=== PATIENT | male | born 1955 | race Caucasian/White ===

== ENCOUNTER 2021-01-31 07:01 | Outpatient (REF) | payer MEDICARE, SELFPAY ==
[2021-01-31 08:31] LABS: MANUAL DIFF FLAG NO
[2021-01-31 08:51] LABS: Basophils Absolute Auto 0.1 X10*3/uL (0.0-0.2); Basophils Percent Auto 0.9 % (0-2); Eosinophils Absolute Auto 0.5 X10*3/uL (0.0-0.4); Eosinophils Percent Auto 8.7 % (0-4); Hematocrit 41.8 % (42-52); Hemoglobin 13.8 g/dl (14.0-18.0); Imm Gran Abs Auto 0.01 X10*3/uL (0.00-0.03); Imm Gran Pct Auto 0.2 % (0.0-0.4); Lymphocytes Absolute Auto 1.4 X10*3/uL (1.2-4.9); Lymphocytes Percent Auto 23.5 % (20-40); Mean Corpuscular Hemoglobin 29.7 pg (27.0-33.0); Mean Corpuscular Volume 90.1 fL (80-98); Mean Platelet Volume 10.5 fL (9.4-12.4); Monocytes Absolute Auto 0.7 X10*3/uL (0.1-1.2); Monocytes Percent Auto 11.2 % (2-11); Neutrophils Absolute Auto 3.2 X10*3/uL (2.0-8.3); Neutrophils Percent Auto 55.5 % (45-73); Platelet Count 284 X10*3/uL (160-400); Red Blood Count 4.64 X10*6/uL (4.60-5.80); White Blood Count 5.8 X10*3/uL (4.8-10.8)
[2021-01-31 09:12] LABS: Alanine Aminotransferase 11 U/L (0-40); Albumin Level 4.3 g/dL (3.5-5.0); Alkaline Phosphatase 74 U/L (39-117); Anion Gap 12 (12-20); Aspartate Amino Transferase 16 U/L (5-37); Bilirubin Total 0.5 mg/dL (0.0-1.0); Blood Urea Nitrogen 14 mg/dL (9-16); Calcium 9.8 mg/dL (8.4-10.2); Carbon Dioxide 29 mmol/L (22-29); Chloride 107 mmol/L (96-108); Cholesterol 169 mg/dL; Estimated Glomerular Filt Rate > 60; Glucose Random 95 mg/dL (60-115); HDL Cholesterol 60 mg/dL; LDL Cholesterol Calculated 99 mg/dl; Sodium 143 mmol/L (135-145); Triglycerides 54 mg/dL
[2021-01-31 09:31] LABS: Thyroid Stimulating Hormone 1.77 uIU/mL (0.32-4.0)
== END 2021-01-31 07:02 | disposition home or self-care (01) ==
LOC: HO.LAB 07:01
PROVIDERS: PCP Internal Medicine; Visit Provider Internal Medicine
DX: E78.00 Pure hypercholesterolemia, unspecified (principal); Z86.010 Personal history of colon polyps
CPT/HCPCS: 36415; 80053; 80061; 84443; 85025

== ENCOUNTER 2021-06-11 09:49 | Outpatient (REF) | payer MEDICARE, SELFPAY ==
[2021-06-11 10:23] LABS: MANUAL DIFF FLAG NO
[2021-06-11 10:49] LABS: Basophils Percent Auto 0.5 % (0-2); Eosinophils Absolute Auto 0.3 X10*3/uL (0.0-0.4); Eosinophils Percent Auto 4.2 % (0-4); Hematocrit 43.8 % (42-52); Hemoglobin 14.8 g/dl (14.0-18.0); Imm Gran Abs Auto 0.02 X10*3/uL (0.00-0.03); Imm Gran Pct Auto 0.3 % (0.0-0.4); Lymphocytes Absolute Auto 1.4 X10*3/uL (1.2-4.9); Lymphocytes Percent Auto 19.4 % (20-40); Mean Corpuscular HGB Conc 33.8 g/dl (31.0-36.0); Mean Corpuscular Hemoglobin 29.8 pg (27.0-33.0); Mean Corpuscular Volume 88.1 fL (80-98); Mean Platelet Volume 10.2 fL (9.4-12.4); Monocytes Absolute Auto 0.7 X10*3/uL (0.1-1.2); Monocytes Percent Auto 8.8 % (2-11); Neutrophils Absolute Auto 4.9 X10*3/uL (2.0-8.3); Neutrophils Percent Auto 66.8 % (45-73); Platelet Count 258 X10*3/uL (160-400); Red Blood Count 4.97 X10*6/uL (4.60-5.80); Red Cell Distribution Width 13.2 % (11.0-16.0); White Blood Count 7.4 X10*3/uL (4.8-10.8)
[2021-06-11 11:13] LABS: Alanine Aminotransferase 14 U/L (0-40); Albumin Level 4.5 g/dL (3.5-5.0); Alkaline Phosphatase 70 U/L (39-117); Anion Gap 14 (12-20); Aspartate Amino Transferase 14 U/L (5-37); Bilirubin Total 0.7 mg/dL (0.0-1.0); Blood Urea Nitrogen 13 mg/dL (9-16); Calcium 10.1 mg/dL (8.4-10.2); Carbon Dioxide 27 mmol/L (22-29); Chloride 105 mmol/L (96-108); Cholesterol 200 mg/dL; Estimated Glomerular Filt Rate > 60; Glucose Fasting 95 mg/dL (60-99); HDL Cholesterol 68 mg/dL; LDL Cholesterol Calculated 117 mg/dl; Potassium 4.7 mmol/L (3.3-5.1); Sodium 141 mmol/L (135-145); Total Protein 7.4 g/dL (6.5-8.0); Triglycerides 76 mg/dL
== END 2021-06-11 09:50 | disposition home or self-care (01) ==
LOC: HO.10HDL 09:49
PROVIDERS: Visit Provider Internal Medicine
DX: Z13.31 Encounter for screening for depression (principal); Q61.5 Medullary cystic kidney; E78.00 Pure hypercholesterolemia, unspecified; Z83.49 Family history of other endocrine, nutritional and metabolic diseases
CPT/HCPCS: 36415; 80053; 80061; 85025

== ENCOUNTER 2022-01-28 08:00 | Outpatient (REF) | payer MEDICARE, SELFPAY ==
[2022-01-28 10:41] LABS: Alanine Aminotransferase 15 U/L (0-40); Alkaline Phosphatase 69 U/L (39-117); Anion Gap 12 (12-20); Aspartate Amino Transferase 15 U/L (5-37); Bilirubin Total 0.5 mg/dL (0.0-1.0); Blood Urea Nitrogen 15 mg/dL (9-16); Calcium 9.8 mg/dL (8.4-10.2); Carbon Dioxide 26 mmol/L (22-29); Chloride 107 mmol/L (96-108); Cholesterol 235 mg/dL; Estimated Glomerular Filt Rate > 60; Glucose Random 100 mg/dL (60-115); HDL Cholesterol 61 mg/dL; LDL Cholesterol Calculated 159 mg/dl; Potassium 4.5 mmol/L (3.3-5.1); Sodium 140 mmol/L (135-145); Total Protein 7.1 g/dL (6.5-8.0); Triglycerides 76 mg/dL
== END 2022-01-28 08:01 | disposition home or self-care (01) ==
LOC: HO.10HDL 08:00
PROVIDERS: Visit Provider Internal Medicine
DX: E78.00 Pure hypercholesterolemia, unspecified (principal); Q61.5 Medullary cystic kidney; Z82.49 Family history of ischemic heart disease and other diseases of the circulatory system
CPT/HCPCS: 36415; 80053; 80061

== ENCOUNTER 2022-04-29 07:34 | Outpatient (REF) | payer MEDICARE, SELFPAY ==
[2022-04-29 10:48] LABS: MANUAL DIFF FLAG NO
[2022-04-29 10:53] LABS: Basophils Percent Auto 0.6 % (0-2); Eosinophils Absolute Auto 0.3 X10*3/uL (0.0-0.4); Eosinophils Percent Auto 4.5 % (0-4); Hematocrit 43.8 % (42.0-52.0); Hemoglobin 14.5 g/dl (14.0-18.0); Imm Gran Abs Auto 0.02 X10*3/uL (0.00-0.03); Imm Gran Pct Auto 0.3 % (0.0-0.4); Lymphocytes Absolute Auto 1.4 X10*3/uL (1.2-4.9); Lymphocytes Percent Auto 21.9 % (20-40); Mean Corpuscular HGB Conc 33.1 g/dl (31.0-36.0); Mean Corpuscular Hemoglobin 29.2 pg (27.0-33.0); Mean Corpuscular Volume 88.1 fL (80.0-98.0); Mean Platelet Volume 10.4 fL (9.4-12.4); Monocytes Absolute Auto 0.6 X10*3/uL (0.1-1.2); Monocytes Percent Auto 9.9 % (2-11); Neutrophils Absolute Auto 4.1 x10*3/uL (2.0-8.3); Neutrophils Percent Auto 62.8 % (45-73); Platelet Count 248 X10*3/uL (160-400); Red Blood Count 4.97 X10*6/uL (4.60-5.80); Red Cell Distribution Width 13.1 % (11.0-16.0); White Blood Count 6.5 X10*3/uL (4.8-10.8)
[2022-04-29 11:16] LABS: Alanine Aminotransferase 10 U/L (0-40); Albumin Level 4.4 g/dL (3.5-5.0); Alkaline Phosphatase 66 U/L (39-117); Anion Gap 14 (12-20); Aspartate Amino Transferase 13 U/L (5-37); Bilirubin Total 0.7 mg/dL (0.0-1.0); Blood Urea Nitrogen 13 mg/dL (9-16); Calcium 9.5 mg/dL (8.4-10.2); Carbon Dioxide 29 mmol/L (22-29); Chloride 105 mmol/L (96-108); Cholesterol 168 mg/dL; Estimated Glomerular Filt Rate > 60; Glucose Fasting 94 mg/dL (60-99); HDL Cholesterol 71 mg/dL; LDL Cholesterol Calculated 85 mg/dl; Potassium 4.9 mmol/L (3.3-5.1); Sodium 143 mmol/L (135-145); Total Protein 7.1 g/dL (6.5-8.0); Triglycerides 64 mg/dL
== END 2022-04-29 07:35 | disposition home or self-care (01) ==
LOC: HO.10HDL 07:34
PROVIDERS: Visit Provider Internal Medicine
DX: E78.00 Pure hypercholesterolemia, unspecified (principal); G43.109 Migraine with aura, not intractable, without status migrainosus; Z12.5 Encounter for screening for malignant neoplasm of prostate; Z68.22 Body mass index [BMI] 22.0-22.9, adult; Z82.49 Family history of ischemic heart disease and other diseases of the circulatory system; Z86.010 Personal history of colon polyps
CPT/HCPCS: 36415; 80053; 80061; 84153; 85025

== ENCOUNTER 2023-01-27 07:33 | Outpatient (REF) | payer MEDICARE, SELFPAY ==
[2023-01-27 10:37] LABS: MANUAL DIFF FLAG NO
[2023-01-27 10:47] LABS: Basophils Absolute Auto 0.1 X10*3/uL (0.0-0.2); Basophils Percent Auto 0.8 % (0-2); Eosinophils Absolute Auto 0.2 X10*3/uL (0.0-0.4); Eosinophils Percent Auto 3.6 % (0-4); Hematocrit 43.6 % (42.0-52.0); Hemoglobin 14.6 g/dl (14.0-18.0); Imm Gran Abs Auto 0.02 X10*3/uL (0.00-0.03); Imm Gran Pct Auto 0.3 % (0.0-0.4); Lymphocytes Absolute Auto 1.4 X10*3/uL (1.2-4.9); Lymphocytes Percent Auto 22.2 % (20-40); Mean Corpuscular HGB Conc 33.5 g/dl (31.0-36.0); Mean Corpuscular Hemoglobin 29.9 pg (27.0-33.0); Mean Corpuscular Volume 89.2 fL (80.0-98.0); Mean Platelet Volume 10.8 fL (9.4-12.4); Monocytes Absolute Auto 0.6 X10*3/uL (0.1-1.2); Monocytes Percent Auto 9.6 % (2-11); Neutrophils Percent Auto 63.5 % (45-73); Platelet Count 274 X10*3/uL (160-400); Red Blood Count 4.89 X10*6/uL (4.60-5.80); Red Cell Distribution Width 12.9 % (11.0-16.0); White Blood Count 6.3 X10*3/uL (4.8-10.8)
[2023-01-27 11:07] LABS: Alanine Aminotransferase 10 U/L (0-40); Albumin Level 4.3 g/dL (3.5-5.0); Alkaline Phosphatase 70 U/L (39-117); Anion Gap 12 (12-20); Aspartate Amino Transferase 16 U/L (5-37); Bilirubin Total 0.8 mg/dL (0.0-1.0); Blood Urea Nitrogen 12 mg/dL (9-16); Calcium 9.6 mg/dL (8.4-10.2); Carbon Dioxide 27 mmol/L (22-29); Chloride 105 mmol/L (96-108); Cholesterol 201 mg/dL; Estimated Glomerular Filt Rate > 60; Glucose Fasting 90 mg/dL (60-99); HDL Cholesterol 66 mg/dL; LDL Cholesterol Calculated 120 mg/dl; Potassium 4.1 mmol/L (3.3-5.1); Sodium 140 mmol/L (135-145); Total Protein 7.1 g/dL (6.5-8.0); Triglycerides 75 mg/dL
== END 2023-01-27 07:34 | disposition home or self-care (01) ==
LOC: HO.10HDL 07:33
PROVIDERS: Visit Provider Internal Medicine
DX: E78.00 Pure hypercholesterolemia, unspecified (principal); I10 Essential (primary) hypertension; Q61.5 Medullary cystic kidney
CPT/HCPCS: 36415; 80053; 80061; 85025

== ENCOUNTER 2024-01-28 09:10 | Outpatient (REF) | payer MEDICARE, SELFPAY ==
[2024-01-28 10:53] LABS: MANUAL DIFF FLAG NO
[2024-01-28 11:02] LABS: Basophils Absolute Auto 0.1 X10*3/uL (0.0-0.2); Basophils Percent Auto 0.8 % (0-2); Eosinophils Absolute Auto 0.3 X10*3/uL (0.0-0.4); Eosinophils Percent Auto 4.7 % (0-4); Hematocrit 40.6 % (42.0-52.0); Hemoglobin 13.8 g/dl (14.0-18.0); Imm Gran Abs Auto 0.01 X10*3/uL (0.00-0.03); Imm Gran Pct Auto 0.2 % (0.0-0.4); Lymphocytes Percent Auto 16.3 % (20-40); Mean Corpuscular Hemoglobin 30.1 pg (27.0-33.0); Mean Corpuscular Volume 88.5 fL (80.0-98.0); Mean Platelet Volume 10.2 fL (9.4-12.4); Monocytes Absolute Auto 0.6 X10*3/uL (0.1-1.2); Monocytes Percent Auto 9.1 % (2-11); Neutrophils Absolute Auto 4.2 x10*3/uL (2.0-8.3); Neutrophils Percent Auto 68.9 % (45-73); Platelet Count 241 X10*3/uL (160-400); Red Blood Count 4.59 X10*6/uL (4.60-5.80); White Blood Count 6.1 X10*3/uL (4.8-10.8)
[2024-01-28 11:31] LABS: Alanine Aminotransferase 11 U/L (0-40); Alkaline Phosphatase 60 U/L (39-117); Anion Gap 13 (12-20); Aspartate Amino Transferase 16 U/L (5-37); Bilirubin Total 0.5 mg/dL (0.0-1.0); Blood Urea Nitrogen 13 mg/dL (9-16); Calcium 9.6 mg/dL (8.4-10.2); Carbon Dioxide 27 mmol/L (22-29); Chloride 107 mmol/L (96-108); Cholesterol 157 mg/dL (<200); Estimated Glomerular Filt Rate > 60; Glucose Random 91 mg/dL (60-115); HDL Cholesterol 61 mg/dL (>40); LDL Cholesterol Calculated 86 mg/dL (<100); Potassium 4.1 mmol/L (3.3-5.1); Sodium 143 mmol/L (135-145); Total Protein 6.8 g/dL (6.5-8.0); Triglycerides 52 mg/dL (<150)
== END 2024-01-28 09:11 | disposition home or self-care (01) ==
LOC: HO.10HDL 09:10
PROVIDERS: Visit Provider Internal Medicine
DX: E78.00 Pure hypercholesterolemia, unspecified (principal); H34.8330 Tributary (branch) retinal vein occlusion, bilateral, with macular edema; I10 Essential (primary) hypertension; Z68.22 Body mass index [BMI] 22.0-22.9, adult
CPT/HCPCS: 36415; 80053; 80061; 85025

== ENCOUNTER 2024-04-21 09:32 | Outpatient (REF) | payer MEDICARE, SELFPAY ==
[2024-04-21 11:24] LABS: Alanine Aminotransferase 11 U/L (0-40); Albumin Level 4.3 g/dL (3.5-5.0); Alkaline Phosphatase 60 U/L (39-117); Anion Gap 11 (12-20); Aspartate Amino Transferase 13 U/L (5-37); Bilirubin Total 0.6 mg/dL (0.0-1.0); Blood Urea Nitrogen 12 mg/dL (9-16); Calcium 9.9 mg/dL (8.4-10.2); Carbon Dioxide 29 mmol/L (22-29); Chloride 106 mmol/L (96-108); Estimated Glomerular Filt Rate > 60; Glucose Random 87 mg/dL (60-115); Sodium 142 mmol/L (135-145)
[2024-04-21 11:40] LABS: Prostate Specific Antigen Scr 4.78 ng/mL (<0.05-4.0)
== END 2024-04-21 09:33 | disposition home or self-care (01) ==
LOC: HO.10HDL 09:32
PROVIDERS: Visit Provider Internal Medicine
DX: E78.00 Pure hypercholesterolemia, unspecified (principal); G43.109 Migraine with aura, not intractable, without status migrainosus; I10 Essential (primary) hypertension; Z86.010 Personal history of colon polyps; Z12.5 Encounter for screening for malignant neoplasm of prostate
CPT/HCPCS: 36415; 80053; 84153

== ENCOUNTER 2024-05-25 09:07 | Outpatient (AMB) | payer MEDICARE, SELFPAY ==
--- NOTE | 2024-05-25 09:18 | MHC.OFFVIS ---
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: No Allergies No Known Allergies [No Known Allergies*] Allergy (Verified 05/25/24 09:22) Results AMB Urinalysis, Automated UA Leukoctes 0 Kasey/uL Last Edit by Zahida Richardson on 05/25/24 09:55 UA Nitrite Negative Last Edit by Zahida Richardson on 05/25/24 09:55 UA Urobilinogen 0 mg/dL Last Edit by Zahida Richardson on 05/25/24 09:55 UA Protein 0 mg/dL Last Edit by Zahida Richardson on 05/25/24 09:55 UA pH 6.0 Last Edit by Zahida Richardson on 05/25/24 09:55 UA Blood 1 Shahbaz/uL Last Edit by Zahida Richardson on 05/25/24 09:55 UA Specific [place] 1.05 Last Edit by Zahida Richardson on 05/25/24 09:55 UA Ketone Negative Last Edit by Zahida Richardson on 05/25/24 09:55 UA Bilirubin 0 mg/dL Last Edit by Zahida Richardson on 05/25/24 09:55 UA Glucose 0 mg/dL Last Edit by Zahida Richardson on 05/25/24 09:55 Assessment & Plan Assessment & Plan Orders: Orders AMB Urinalysis Automated Today Z13.9 - Encounter for screening, unspecified Coding
--- NOTE | 2024-05-25 09:21 | MHC.OFFVIS ---
Intake Visit Reasons: elevated PSA Allergies No Known Allergies [No Known Allergies*] Allergy (Verified 05/25/24 09:22) HPI Comments Details: Michael is here for new patient evaluation for elevated PSA. PSA 04/21/24--4.78 ng/mL, (PSA - 01/11/2019-- 0.43)-- Patient denies FH prostate cancer, he denies issues with urination. Pertinent h/o microscopic hematuria w/u 2010. I have discussed that elevated PSA may indicate changes in the prostate including benign enlargement, cancer and an inflammatory condition. I have discussed repeating PSA. I have discussed depending on results further evaluation with prostate biopsy will be further discussed. Michael states he is leaving for [place] in about 3 weeks. UA + for blood. Discussed evaluation with renal/bladder US, urine for cytology. Review of Systems Const All systems reviewed & are unremarkable except as noted in HPI and below Reports no additional complaints Eyes Reports no additional complaints ENT Reports no additional complaints Card Reports no additional complaints Resp Reports no additional complaints GI Reports no additional complaints Reports as per HPI Musc Reports no additional complaints Skin/Breast Reports system reviewed and no additional complaints, except as documented Neuro Reports no additional complaints Psych Reports no additional complaints Endo Reports no additional complaints Bradley/Lymph Reports no additional complaints Aller/Immun Reports no additional complaints Physical Exam Const General: healthy appearing, no acute distress and well developed Orientation/consciousness: patient oriented x3 HEENT Head: Yes normocephalic and Yes atraumatic Eyes Conjunctivae: conjunctivae normal Neck Neck: Yes normal visual inspection Chest Chest palpation & inspection: normal inspection of the chest Resp Effort & Inspection: normal respiratory effort Cardio Rate: regular rate GI Inspection: Yes normal to inspection Neuro General: patient oriented x3 Psych Appearance: grossly normal Affect: normal affect Results AMB Urinalysis, Automated UA Leukoctes 0 Kasey/uL Last Edit by Zahida Richardson on 05/25/24 09:55 UA Nitrite Negative Last Edit by Zahida Richardson on 05/25/24 09:55 UA Urobilinogen 0 mg/dL Last Edit by Zahida Richardson on 05/25/24 09:55 UA Protein 0 mg/dL Last Edit by Zahida Richardson on 05/25/24 09:55 UA pH 6.0 Last Edit by Zahida Richardson on 05/25/24 09:55 UA Blood 1 Shahbaz/uL Last Edit by Zahida Richardson on 05/25/24 09:55 UA Specific [place] 1.05 Last Edit by Zahida Richardson on 05/25/24 09:55 UA Ketone Negative Last Edit by Zahida Richardson on 05/25/24 09:55 UA Bilirubin 0 mg/dL Last Edit by Zahida Richardson on 05/25/24 09:55 UA Glucose 0 mg/dL Last Edit by Zahida Richardson on 05/25/24 09:55 Results Reviewed Results Reviewed: Laboratory Last Values Urine pH (Auto) 6.0 05/25/24 09:49 Specific [place] (Auto) 1.05 05/25/24 09:49 Urine Protein (Auto) 0 mg/dL 05/25/24 09:49 Glucose (UA)(Auto) 0 mg/dL 05/25/24 09:49 Urine Ketones (Auto) Negative 05/25/24 09:49 Urine Blood (Auto) 1 Shahbaz/uL 05/25/24 09:49 Urine Nitrite (Auto) Negative 05/25/24 09:49 Urine Bilirubin (Auto) 0 mg/dL 05/25/24 09:49 Urine Urobilinogen (Auto) 0 mg/dL 05/25/24 09:49 Leukocyte Esterase (Auto) 0 Kasey/uL 05/25/24 09:49 Assessment & Plan Assessment & Plan (1) Elevated PSA: Code(s): R97.20 - Elevated prostate specific antigen [PSA] Category: Medical (2) Microscopic hematuria: Code(s): R31.29 - Other microscopic hematuria Category: Medical Plan I have discussed repeating PSA. I have discussed depending on results further evaluation with prostate biopsy will be further discussed. Michael states he is leaving for [place] in about 3 weeks. UA + for blood. Discussed evaluation with renal/bladder US, urine for cytology. Orders: Orders AMB Urinalysis Automated 05/25/24 Z13.9 - Encounter for screening, unspecified US retroperitoneal comp 05/26/24 R31.29 - Other microscopic hematuria, R97.20 - Elevated prostate specific antigen [PSA] PSA,Total (Free>4and<10) 05/26/24 R97.20 - Elevated prostate specific antigen [PSA] Patient Instructions: The patient had an opportunity to ask questions regarding treatment plan. The patient expressed understanding and agreement with the above treatment plan. The patient is aware they should contact our office by phone for worsening of their current condition or the appearance of new symptoms. Compliance is encouraged with any medications and followup testing that is ordered. It is a privilege to be allowed the opportunity to participate in the urologic care of your patient. If you have any questions or concerns regarding treatment for the above conditions please do not hesitate to contact me. The office telephone contact is [phone]. This note is constructed in part using voice recognition software. While every effort has been made to ensure accuracy liquefied petroleum gasfitter errors may have been included. Yours sincerely, Lis Ace MD Coding Level of Care Code New Pt Level 4 (17049) Diagnoses Elevated PSA R97.20 Microscopic hematuria R31.29
== END 2024-05-25 10:21 | disposition home or self-care (01) ==
PROVIDERS: PCP Internal Medicine; Visit Provider Urology
DX: R97.20 Elevated prostate specific antigen [PSA] (principal); R31.29 Other microscopic hematuria
CPT/HCPCS: 99204

== ENCOUNTER → 2024-05-25 09:07 | Outpatient (BNVA) | payer MEDICARE, SELFPAY | PROVIDERS: PCP Internal Medicine; Visit Provider Urology | DX: R97.20 Elevated prostate specific antigen [PSA] (principal); R31.29 Other microscopic hematuria | CPT/HCPCS: 81003; 99202 ==

== ENCOUNTER 2024-05-26 09:14 | Outpatient (REF) | payer MEDICARE, SELFPAY ==
[2024-05-26 11:19] LABS: PSA,Total (Free>4and<10) 1.18 ng/mL (0.00-4.00)
== END 2024-05-26 09:15 | disposition home or self-care (01) ==
LOC: HO.10HDL 09:14
PROVIDERS: Visit Provider Urology
DX: Z13.89 Encounter for screening for other disorder (principal)
CPT/HCPCS: 36415; 84153

== ENCOUNTER 2024-05-26 12:40 | Outpatient (REF) | payer MEDICARE, SELFPAY ==
--- NOTE | ~2024-05-26 | US_ITS ---
EXAMINATION: US RETROPERITONEAL COMPLETE (RENAL) CLINICAL INFORMATION: Other microscopic hematuria. COMPARISON: Ultrasound renal 01/16/2017 and 01/23/2006. TECHNIQUE: Real-time imaging of the kidneys and bladder. FINDINGS: RIGHT KIDNEY: 10.6 x 5.4 x 5.6 cm (SAG x AP x TRV). The kidney is normal in size, contour, and echogenicity. Renal cortical thickness is normal. No renal calculi or hydronephrosis. A benign 0.8 cm lower pole Bosniak class I renal cyst is noted which requires no additional imaging or follow up. No solid renal masses are seen. LEFT KIDNEY: 10.4 x 6.0 x 4.9 cm (SAG x AP x TRV). The kidney is normal in size, contour, and echogenicity. Renal cortical thickness is normal. No renal calculi or hydronephrosis. There is some mild fullness in the renal pelvis. Multiple benign Bosniak class I renal cysts are noted, the largest measuring 1.8 cm which require no additional imaging or follow-up. No solid renal masses are seen. BLADDER: Well distended and normal. Bilateral ureteral jets are demonstrated. Prevoid bladder volume is 578 mL. Postvoid bladder volume is 218 mL. ADDITIONAL FINDINGS: Prostate mildly enlarged at 44.2 mL. The prostate contains calcifications. Some debris is present within the bladder. A small area of calcification protruding into the bladder is nonmobile and may be related to the prostate. US/US retroperitoneal comp IMPRESSION: 1. Mild BPH with 44.2 mL prostate and large 218 mL postvoid residual. 2. Benign Bosniak class I renal cysts need no additional imaging or follow-up. 3. A cause for the patient's hematuria has not been found. Electronically signed by: Isac Johnson MD 05/26/2024 05:26 PM EDT
== END 2024-05-26 12:41 | disposition home or self-care (01) ==
LOC: HO.US 12:40
PROVIDERS: Visit Provider Urology
DX: R31.29 Other microscopic hematuria (principal); R97.20 Elevated prostate specific antigen [PSA]
CPT/HCPCS: 36415; 76770; 84153

== ENCOUNTER 2024-07-22 13:18 | Outpatient (AMB) | payer MEDICARE, SELFPAY ==
--- NOTE | 2024-07-21 19:20 | A.OFFVIS_ITS ---
Intake Visit Reasons: 8w/US/PSA Intake Note: Patient is present for 8W/US/PSA Urology Medication:NONE Antibiotic Allergy:NONE Blood Thinner:NONE Drip Pumper Required: No Allergies No Known Allergies [No Known Allergies*] Allergy (Verified 07/22/24 13:16) Medication List - Last Reconciled 07/22/24 by Lis Ace MD diphenhydramine HCl (Banophen) 25 mg PO BEDTIME naproxen 500 mg PO BID rosuvastatin 20 mg PO BEDTIME tamsulosin (Flomax) 0.4 mg PO BEDTIME HPI Comments Details: 07/22/24--8week fu PSA. Telehealth. Reviewed recent PSA - 05/26/24--1.18 Reviewed renal US--05/26/24--RIGHT KIDNEY: normal. No renal calculi or hydro nephrosis. A benign 0.8 cm lower pole, Bosniak class I renal cyst is noted which requires no additional imaging or follow up. No solid renal masses are seen. LEFT KIDNEY: No renal calculi or hydronephrosis. There is some mild fullness in the renal pelvis. Multiple benign Bosniak class I renal cysts are noted, the largest measuring 1.8 cm which require no additional imaging or follow-up. No solid renal masses are seen. BLADDER: Well distended and normal. Bilateral ureteral jets are demonstrated. Prevoid bladder volume is 578 mL. Postvoid bladder volume is 218 mL. Prostate mildly enlarged at 44.2 mL. The prostate contains calcifications. Lower urinary tract symptoms, slowing of urinary stream. Will start Flomax 0.4 mg daily Review of chart: 05/25/24--Michael is here for new patient evaluation for elevated PSA. PSA 04/21/24--4.78 ng/mL, (PSA - 01/11/2019-- 0.43)-- Patient denies FH prostate cancer, he denies issues with urination. Pertinent h/o microscopic hematuria w/u 2010. I have discussed that elevated PSA may indicate changes in the prostate including benign enlargement, cancer and an inflammatory condition. I have discussed repeating PSA. I have discussed depending on results further evaluation with prostate biopsy will be further discussed. Michael states he is leaving for [place] in about 3 weeks. UA + for blood. Discussed evaluation with renal/bladder US, urine for cytology. Review of Systems Const All systems reviewed & are unremarkable except as noted in HPI and below Reports no additional complaints Eyes Reports no additional complaints ENT Reports no additional complaints Card Reports no additional complaints Resp Reports no additional complaints GI Reports no additional complaints Reports as per HPI Musc Reports no additional complaints Skin/Breast Reports system reviewed and no additional complaints, except as documented Neuro Reports no additional complaints Psych Reports no additional complaints Endo Reports no additional complaints Bradley/Lymph Reports no additional complaints Aller/Immun Reports no additional complaints Telehealth Telehealth Telehealth Platform: [employer] Location of provider rendering services: practice address Location of patient: address on file Patient Identification confirmed using: Name, : Yes Telehealth method: voice only Patient verbally consented to treatment: Yes Patient verbally consented to billing insurance company: Yes Patient informed of any privacy concerns related to visit: Yes Minutes spent on Phone/Video with Pt.: 15 Results Reviewed Results Reviewed: Date of Service: 05/26/24 US RETROPERITONEAL COMPLETE (RENAL) CLINICAL INFORMATION: Other microscopic hematuria. COMPARISON: Ultrasound renal 01/16/2017 and 01/23/2006. TECHNIQUE: Real-time imaging of the kidneys and bladder. FINDINGS: RIGHT KIDNEY: 10.6 x 5.4 x 5.6 cm (SAG x AP x TRV). The kidney is normal in size, contour, and echogenicity. Renal cortical thickness is normal. No renal calculi or hydronephrosis. A benign 0.8 cm lower pole Bosniak class I renal cyst is noted which requires no additional imaging or follow up. No solid renal masses are seen. LEFT KIDNEY: 10.4 x 6.0 x 4.9 cm (SAG x AP x TRV). The kidney is normal in size, contour, and echogenicity. Renal cortical thickness is normal. No renal calculi or hydronephrosis. There is some mild fullness in the renal pelvis. Multiple benign Bosniak class I renal cysts are noted, the largest measuring 1.8 cm which require no additional imaging or follow-up. No solid renal masses are seen. BLADDER: Well distended and normal. Bilateral ureteral jets are demonstrated. Prevoid bladder volume is 578 mL. Postvoid bladder volume is 218 mL. ADDITIONAL FINDINGS: Prostate mildly enlarged at 44.2 mL. The prostate contains calcifications. Some debris is present within the bladder. A small area of calcification protruding into the bladder is nonmobile and may be related to the prostate. 1. Mild BPH with 44.2 mL prostate and large 218 mL postvoid residual. 2. Benign Bosniak class I renal cysts need no additional imaging or follow-up. 3. A cause for the patient's hematuria has not been found. Assessment & Plan Assessment & Plan (1) Elevated PSA: Code(s): R97.20 - Elevated prostate specific antigen [PSA] Category: Medical (2) Microscopic hematuria: Code(s): R31.29 - Other microscopic hematuria Category: Medical (3) BPH loc w urin obs/LUTS: Code(s): N40.1 - Benign prostatic hyperplasia with lower urinary tract symptoms Category: Medical Plan Renal bladder ultrasound findings bilateral simple renal cysts. Estimated prostate volume 45 mL. Lower urinary tract symptoms, slowing of urinary stream. Will start Flomax 0.4 mg daily. Medications: New tamsulosin (Flomax) 0.4 mg PO BEDTIME 90 caps 1RF Patient Instructions: The patient had an opportunity to ask questions regarding treatment plan. The patient expressed understanding and agreement with the above treatment plan. The patient is aware they should contact our office by phone for worsening of their current condition or the appearance of new symptoms. Compliance is encouraged with any medications and followup testing that is ordered. It is a privilege to be allowed the opportunity to participate in the urologic care of your patient. If you have any questions or concerns regarding treatment for the above conditions please do not hesitate to contact me. The office telephone contact is [phone]. This note is constructed in part using voice recognition software. While every effort has been made to ensure accuracy cyber security manager errors may have been included. Yours sincerely, Lis Ace MD Coding Level of Care Code Tele Est Pt Level 4 (51125) Diagnoses Elevated PSA R97.20 Microscopic hematuria R31.29 BPH loc w urin obs/LUTS N40.1
== END 2024-07-22 16:30 | disposition home or self-care (01) ==
LOC: HO.HUSH 13:18
PROVIDERS: PCP Internal Medicine; Visit Provider Urology
DX: R97.20 Elevated prostate specific antigen [PSA] (principal); R31.29 Other microscopic hematuria; N40.1 Benign prostatic hyperplasia with lower urinary tract symptoms
CPT/HCPCS: 99442

== ENCOUNTER → 2024-07-22 13:18 | Outpatient (BNVA) | payer MEDICARE, SELFPAY | PROVIDERS: PCP Internal Medicine; Visit Provider Urology ==

== ENCOUNTER 2025-01-27 09:01 | Outpatient (REF) | payer MEDICARE, SELFPAY ==
[2025-01-27 10:55] LABS: Alanine Aminotransferase 11 U/L (0-40); Albumin Level 4.1 g/dL (3.5-5.0); Alkaline Phosphatase 64 U/L (39-117); Anion Gap 10 (12-20); Aspartate Amino Transferase 18 U/L (5-37); Bilirubin Total 0.6 mg/dL (0.0-1.0); Blood Urea Nitrogen 14 mg/dL (9-16); Calcium 9.6 mg/dL (8.4-10.2); Carbon Dioxide 28 mmol/L (22-29); Chloride 107 mmol/L (96-108); Cholesterol 208 mg/dL (<200); Estimated Glomerular Filt Rate > 60; Glucose Random 98 mg/dL (60-115); HDL Cholesterol 64 mg/dL (>40); LDL Cholesterol Calculated 131 mg/dL (<100); Sodium 141 mmol/L (135-145); Total Protein 6.8 g/dL (6.5-8.0); Triglycerides 69 mg/dL (<150)
[2025-01-27 11:13] LABS: Prostate Specific Antigen 1.01 ng/mL (<0.05-4.0)
== END 2025-01-27 09:02 | disposition home or self-care (01) ==
LOC: HO.10HDL 09:01
PROVIDERS: Visit Provider Internal Medicine
DX: E78.00 Pure hypercholesterolemia, unspecified (principal); I10 Essential (primary) hypertension; R97.20 Elevated prostate specific antigen [PSA]; Z68.22 Body mass index [BMI] 22.0-22.9, adult; Z12.5 Encounter for screening for malignant neoplasm of prostate
CPT/HCPCS: 36415; 80053; 80061; 84153

== ENCOUNTER 2025-05-30 08:45 | Outpatient (REF) | payer MEDICARE, SELFPAY ==
--- OUTSIDE RECORDS SUMMARY | 2025-05-30 10:00 | XMS_ITS | Patient Health Record ---
Author Organization [facility] Address [address] [place] [address] Care Team Providers Care Merchandise Planning Manager Name Role Phone SvetlanaSujatha baig Primary Care Provider Unavailab Fredy Gaines Jr Unavailable Reason For Referral No Information Medications Medication [...] Problem Screening for malignant neoplasm of colon (228710629) Encounter for screening for malignant neoplasm of colon (Z12.11) Active confirmed Problem 001835520 senior living (current) use of non-steroidal anti-inflammato lori (NSAID) (Z79.1) Active confirmed Problem History of adenomatous polyp of colon (799725931) History of adenomatous polyp of colon (Z86.0101) Active confirmed Vital Signs Temperature 98.9 degrees Fahrenheit 05/19/2025 Blood pressure diastolic 01 mm Hg 05/19/2025 Height 64 in 05/19/2025 Blood pressure systolic 001 mm Hg 05/19/2025 Weight 135 lbs 05/19/2025 BMI 23.17 kg/m2 05/19/2025 Encounters Encounter Location Date Provider Diagnosis [facility] [address] [place] [phone] 05/19/2025 Fredy Lizarraga Jr History of adenomatous polyp of colon Z86.0101 ; senior living (current) use of non-steroidal anti-inflammatories (NSAID) Z79.1 and Encounter for screening for malignant neoplasm of colon Z12.11 [facility] [address] [place] [phone] 05/18/2025 Fredy Lizarraga Jr Assessments Encounter Date Diagnosis (ICD Code) Assessment Notes Treatment Notes Treatment Clinical Notes Section Notes 05/19/2025 dye maker (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) use of non-steroidal anti-inflammator ies (NSAID) [...] Appt Details Provider Name:Fredy slade Jr, 06/07/2025 11:00:00 AM, [address] [place] [address] , [place], [place], [id number], Insurance Providers Payer Name Payer Address Payer Phone Subscriber Number Group Number Insured Name Patient Relationship to Insured Coverage Start Date Coverage End Date MEDICARE OF [place] [address] [place] [address] [phone] [id number] MIRTHA LONG Self - patient is the insured 9 [employer] ATTN CLAIMS [address] [place] [address] [id number] MIRTHA LONG Self - patient is the insured Medical (General) History Medical History History ICD Code Migraine headaches Hyperlipidemia Bradycardia with negative cardiac workup Hypertension Colonoscopy 02/01, tubular adenoma, 5-yea r follow-up Medullary sponge kidney and microscopic hematuria Surgical History Surgery Date(Month/Year)
--- OUTSIDE RECORDS SUMMARY | 2025-05-30 10:00 | XMS_ITS | Patient Health Record ---
Author Organization [facility] [address] [place], [place] [id number] Care Team Providers Care Teller Head Name Role Phone MAREK GINNA Primary Care Provider Reason For Referral No Information Plan Of Treatment No Information Insurance Providers Payer Name Payer Address Payer Phone Subscriber Number Group Number Insured Name Patient Relationship to Insured Coverage Start Date Coverage End Date [employer] [place] [employer] [address] [address] [place] [address] [phone] [id number] MIRTHA LONG Self - patient is the insured 9 Blue Cross and Blue [facility] [address] [place] [address] [id number] MIRTHA LONG Self - patient is the insured 0
[2025-05-30 11:11] LABS: Alanine Aminotransferase 10 U/L (0-40); Albumin Level 4.3 g/dL (3.5-5.0); Alkaline Phosphatase 65 U/L (39-117); Anion Gap 11 (12-20); Aspartate Amino Transferase 26 U/L (5-37); Blood Urea Nitrogen 10 mg/dL (9-16); Calcium 9.3 mg/dL (8.4-10.2); Carbon Dioxide 27 mmol/L (22-29); Chloride 107 mmol/L (96-108); Cholesterol 171 mg/dL (<200); Estimated Glomerular Filt Rate > 60; HDL Cholesterol 64 mg/dL (>40); Potassium 4.1 mmol/L (3.3-5.1); Sodium 141 mmol/L (135-145); Total Protein 7.1 g/dL (6.5-8.0); Triglycerides 72 mg/dL (<150)
== END 2025-05-30 08:46 | disposition home or self-care (01) ==
LOC: HO.10HDL 08:45
PROVIDERS: Visit Provider Internal Medicine
DX: Z13.31 Encounter for screening for depression (principal); N40.0 Benign prostatic hyperplasia without lower urinary tract symptoms; E78.00 Pure hypercholesterolemia, unspecified; Z86.0101 Personal history of adenomatous and serrated colon polyps
CPT/HCPCS: 36415; 80053; 80061

== ENCOUNTER 2025-06-07 08:52 | Day surgery (SDC) | payer MEDICARE, SELFPAY ==
--- OUTSIDE RECORDS SUMMARY | 2025-05-19 10:55 | XMS_ITS ---
Author Organization [facility] Address [address] [place] [address] Care Team Providers Care Fitter/Welder Name Role Phone Svetlanajovanni Sujatha Primary Care Provider UnavailFredy Tapia Jr Unavailable REASON FOR VISIT Patient presents today for a COLON SCREENING Medications Medication SIG (Take, Route, Frequency, Duration) Notes Start Date End Date Status Rosuvastatin Calcium 20 MG 1 tablet Oral ly Once a day Active Naproxen 500 MG 1 tablet with food o r milk Orally as needed for migraines Active Immunizations Vaccine Route Administration Date Status Comme nts Influenza Unknown 05/19/2025 Refused Social History Tobacco Use: Social History Observation Description Date Details (start date - stop date) Former Smoker NA - NA Tobacco Use/Smoking Question Answer Notes Patient is a former smoker When did you stop smoking? 30 plus years ago How long has it been since you last smoked? > 10 years Alcohol Screen Question Answer Notes Did you have a drink contain ing alcohol in the past year? Yes How often did you have a dri nk containing alcohol in the past year? Never (0 point) How many drinks did you have on a typical day when you were drinking in the past year? 1 or 2 drinks (0 point) How often did you have 6 or more drinks on one occasion in the past year? Never (0 point) Points 0 Interpretation Negative Problems Problem Type SNOMED Code ICD Code Onset Dates Problem Status W/U Status Risk Notes Problem History of adenomatous polyp of colon (427774545) History of adenomatous polyp of colon (Z86.0101) Active confirmed Problem Screening for malignant neoplasm of colon (979016278) Encounter for screening for malignant neoplasm of colon (Z12.11) Active confirmed Vital Signs Temperature 98.9 degrees Fahrenheit 05/19/20 25 Blood pressure systolic 001 mm Hg 05/19/20 25 Blood pressure diastolic 01 mm Hg 025 Height 64 in 05/19/2025 Weight 135 lbs 05/19/2025 BMI 23.17 kg/m2 05/19/2025 Encounters Encounter Location Date Provider Diagnosis [facility] [address] [place] [address] 05/19/2025 Fredy Lizarraga Jr History of adenomatous polyp of colon Z86.0101 ; USP (current) use of non-steroidal anti-inflammatories (NSAID) Z79.1 and Encounter for screening for malignant neoplasm of colon Z12.11 Assessments Encounter Date Diagnosis (ICD Code) Assessment Notes Treatment Notes Treatment Clinical Notes Section Notes 05/19/2025 History of adenomatous polyp of colon (ICD-10 - Z86.0101) We discussed colonoscopy today. We discussed risks and benefits of the procedure today. He understands these and agrees to proceed. This will be scheduled at his convenience. He is advised to stop naproxen 1 week before the procedure. 05/19/2025 USP (current) use of non-steroidal anti-inflammator ies (NSAID) (ICD-10 - Z79.1) We discussed colonoscopy today. We discussed risks and benefits of the procedure today. He understands these and agrees to proceed. This will be scheduled at his convenience. He is advised to stop naproxen 1 week before the procedure. 05/19/2025 Encounter for screening for malignant neoplasm of colon (ICD-10 - Z12.11) We discussed colonoscopy today. We discussed risks and benefits of the procedure today. He understands these and agrees to proceed. This will be scheduled at his convenience. He is advised to stop naproxen 1 week before the procedure. Plan Of Treatment Future Test Test Name Order Date COLONOSCOPY 05/19/2025 Next Appt Details Follow Up: 1 Year, Reason: Provider Name:Fredy slade Jr, 06/07/2025 12:00:00 PM, [address] [place] [address] , [place], [place], [id number], Progress Notes * MICHAEL WALKER ADOB:1954 (69 yo M)Acc No.[id number]:05/19/2025 Progress Notes Patient: MICHAEL TINSLEY Provider: Lloyd Lizarraga MD :1955 A ge:69 Y S ex:Male Date:05/19/2025 Address:[address] [place] [address] Pcp:Sujatha Louis Subjective: * Chief Complaints: * 1 . Patient presents today for a COLON SCREENING. * HPI: N ew symptom(s): Michael is a pleasant 69-year-old man seen today for his preoperative colonoscopy visit. Colonoscopy in January 2020 showed a tubular adenoma for which 5-year follow- up was recommended. He has no complaints of rectal bleeding or change in his bowel habits. Weight and appetite have been stable. * ROS: G eneral/Constitutional: Change in appetite d enies. F atigue d enies. ? E NT: Patient denies d ifficulty swallowing. R espiratory: Patient denies s hortness of breath. C ardiovascular: Patient denies c hest pain. G astrointestinal: Comments S [facility] for details. G enitourinary: Difficulty urinating d enies. I ncontinence d enies. M usculoskeletal: Patient denies m uscle aches. S kin: Patient denies p ruritis. N eurologic: Patient denies l ow back pain. P sychiatric: Patient denies m ental or physical abuse. * Medical History: M igraine headaches, Hyperlipidemia, Bradycardia with negative cardiac workup, Hypertension, Colonoscopy 02/01, tubular adenoma, 5-year follow-up, Medullary sponge kidney and microscopic hematuria. * Family History: F ather: . M other: , diagnosed with Heart disease. no known hx of colon ca,polyps , liver ds. * Social History: T obacco Use: T obacco Use/Smoking P atient is a f ormer smoker, W hen did you stop smoking??30 plus years ago, H ow long has it been since you last smoked? > 10 years. D rugs/Alcohol: A lcohol Screen D id you have a drink containing alcohol in the past year? Y es, H ow often did you have a drink containing alcohol in the past year? N ever (0 point), H ow many drinks did you have on a typical day when you were drinking in the past year? 1 or 2 drinks (0 point), H ow often did you have 6 or more drinks on one occasion in the past year? N ever (0 point), P oints 0 , I nterpretation N egative. M iscellaneous: M arital status: . 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 * Medications: T aking Rosuvastatin Calcium 20 MG Tablet 1 tablet Orally Once a day , Taking Naproxen 500 MG Tablet 1 tablet with food or milk Orally as needed for migraines , Discontinued MiraLax (colon prep) 8.3 ounce ((238) grams mixed with Gatorade or Crystal Light orally begin at 5:00 p.m. the day before the procedure , Medication List reviewed and reconciled with the patient Objective: * Vitals: W t:135lbs, Ht: 64 in, BMI:23.17Index, BP:001/01mm Hg, Temp:98.9, Wt-k.24. * Examination: G eneral Examination: GENERAL APPEARANCE: i n no acute distress. HEAD: n ormocephalic. EYES: s clera non-icteric. ORAL CAVITY: m ucosa moist. NECK/THYROID: n o lymphadenopathy. SKIN: a nicteric. HEART: S 1, S2 normal, no murmurs. LUNGS: c lear to auscultation bilaterally. CHEST: n ormal shape and expansion. ABDOMEN: s oft, nontender, nondistended, bowel sounds present, no organomegaly . EXTREMITIES: n o clubbing, cyanosis, or edema. PSYCH: c ognitive function intact. Assessment: * Assessment: 1. L skyler term (current) use of non-steroidal anti-inflammatories (NSAID) - Z79.1 (Primary) 2 . H istory of adenomatous polyp of colon - Z86.0101 3 . E ncounter for screening for malignant neoplasm of colon - Z12.11 We discussed colonoscopy tod ay. We discussed risks and benefits of the procedure today. He understands these and agrees to proceed. This will be scheduled at his convenience. He is advised to stop naproxen 1 week before the procedure. Plan: * Treatment: 2. E ncounter for screening for malignant neoplasm of colon P rocedure: COLONOSCOPY (Ordered for 05/19/2025) * Immunizations: Influenza (Not administered - Refused: Patient decision) * Procedure Codes: 3 017F COLORECTAL CA SCREEN DOC REV, 1036F TOBACCO NON-USER, G9744 PATIENT NOT ELIG D/T ACTIVE DX HTN * Preventive Medicine: Screenings: F all Risk Screening F all Risk Assessment: N o falls in the past year, S creening: N o falls in the past year, A ssessment: N ot performed, no reason specified, P ad of Care: N ot documented, no reason specified. * Follow Up: 1 Year * * Sign off status: Completed true * Provider: Lloyd Lizarraga MD Date: 0 05/19/2025 Generated for Melina aburto/Gopi/Rosamariaitting on: 0 05/20/2025 10:39 AM EDT History and Physical Notes * HPI (History of Present Illness) Category Sub-Category Detail Notes Category Not es New symptom(s) Michael is a pl easant 69-year-old man seen today for his preoperative colonoscopy visit. Colonoscopy in January 2020 showed a tubular adenoma for which 5-year follow-up was recommended. He has no complaints of rectal bleeding or change in his bowel habits. Weight and appetite have been stable. Examination Category Sub-Category Detail Notes Category Not es General Examination GENERAL APPEARANCE: in no acute di stress HEAD: normocephalic EYES: sclera non-icteric NECK/THYROID: no lymphadenopathy HEART: S1, S2 normal, no mu rmurs CHEST: normal shape and exp ansion LUNGS: clear to auscultatio n bilaterally ABDOMEN: soft, nontender, non distended, bowel sounds present, no organomegaly SKIN: anicteric EXTREMITIES: no clubbing, cyanosi s, or edema PSYCH: cognitive function i ntact ORAL CAVITY: mucosa moist
--- OUTSIDE RECORDS SUMMARY | 2025-05-20 10:40 | XMS_ITS | Patient Health Record ---
Author Organization [facility] [address] [place], [place] [id number] Care Team Providers Care Electric Mule Driver Name Role Phone MAREK GINNA Primary Care Provider Reason For Referral No Information Plan Of Treatment No Information Insurance Providers Payer Name Payer Address Payer Phone Subscriber Number Group Number Insured Name Patient Relationship to Insured Coverage Start Date Coverage End Date [place] [employer] [address] [address] [place] [address] [id number] MIRTHA LONG Self - patient is the insured 9 Blue Cross and Blue [facility] [address] [place] [address] [phone] [id number] MIRTHA LONG Self - patient is the insured 0
--- OUTSIDE RECORDS SUMMARY | 2025-05-20 10:40 | XMS_ITS | Patient Health Record ---
Author Organization [facility] Address [address] [place] [address] Care Team Providers Care Pipe Stress Engineer Name Role Phone SvetlanaSujatha baig Primary Care Provider Unavailab Fredy Gaines Jr Unavailable [phone] Reason For Referral No Information Medications Medication SIG (Take, Route, Frequency, Duration) Notes Start Date End Date Status Rosuvastatin Calcium 20 MG 1 tablet Oral ly Once a day Active Naproxen 500 MG 1 tablet with food o r milk Orally as needed for migraines Active Immunizations Vaccine Route Administration Date Status Comme nts Influenza Unknown 01/19/2020 Refused Influenza Unknown 05/19/2025 Refused Social History Tobacco [...] Problem Status W/U Status Risk Notes Problem Screening for malignant neoplasm of colon (156393768) Encounter for screening for malignant neoplasm of colon (Z12.11) Active confirmed Problem 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 of non-steroidal anti-inflammato lori (NSAID) (Z79.1) Active confirmed Problem History of adenomatous polyp of colon (740029748) History of adenomatous polyp of colon (Z86.0101) Active confirmed Vital Signs Temperature 98.9 degrees Fahrenheit 05/19/2025 Blood pressure diastolic 01 mm Hg 05/19/2025 Height 64 in 05/19/2025 Blood pressure systolic 001 mm Hg 05/19/2025 Weight 135 lbs 05/19/2025 BMI 23.17 kg/m2 05/19/2025 Encounters Encounter Location Date Provider Diagnosis [facility] [address] [place] [phone] 05/19/2025 Fredy Lizarraga Jr History of adenomatous polyp of colon Z86.0101 ; 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 We discussed risks and benefits of the procedure today. He understands these and agrees to proceed. This will be scheduled at his convenience. He is advised to stop naproxen 1 week before the procedure. 05/19/2025 History of adenomatous polyp of colon [...] Future Test Test Name Order Date COLONOSCOPY 01/19/2020 COLONOSCOPY 05/19/2025 Next Appt Details Provider Name:Fredy slade Jr, 06/07/2025 12:00:00 PM, [address] [place] [address] , [place], [place], [id number], Insurance Providers Payer Name Payer Address Payer Phone Subscriber Number Group Number Insured Name Patient Relationship to Insured Coverage Start Date Coverage End Date MEDICARE OF [place] [address] [place] [address] [id number] MIRTHA LONG Self - patient is the insured 9 [employer] CLAIMS [address] [place] [address] [id number] MIRTHA LONG Self - patient is the insured Medical (General) History Medical History History ICD Code Migraine headaches Hyperlipidemia Bradycardia with negative cardiac workup Hypertension Colonoscopy 02/01, tubular adenoma, 5-yea r follow-up Medullary sponge kidney and microscopic hematuria Surgical History Surgery Date(Month/Year)
[2025-06-03 14:32] VITALS: BMI 23.2
--- NOTE | 2025-06-06 08:44 | HO.ANESPROP2 ---
Documented by User: Shayy Pan NP 06/06/25 08:44 HPI - Anesthesia Eval Consult details Narrative: 69yo M for Colonoscopy PMFSH Active Problems Active Problems: All Active Problems BPH loc w urin obs/LUTS (Acute) Microscopic hematuria (Acute) Elevated PSA (Acute) Past Medical History Medical History Medullary sponge kidney Colonic polyp High cholesterol Migraines Kidney disease Adenoma HTN (hypertension) Arrhythmia Family History Family History Father Throat cancer Diabetes mellitus Mother Myocardial infarct Surgical History Surgical History H/O colonoscopy Social History Social History Patient Tobacco Use Status: Former Tobacco user Use of substances other than those prescribed or required for medical reasons: No Advance Directives: No Advance Directives Information Provided: Yes Meds Allergies Allergy/AdvReac Type Severity Reaction Status Date / Time lisinopril Allergy Mild Unknown Verified 09/10/24 08:49 Home Medications ?Medication ?Instructions ?Recorded ?Confirmed ?Last Taken ?Type diphenhydramine HCl 25 mg tablet 25 mg PO BEDTIME 05/25/24 07/22/24 Unknown History (Banophen) naproxen 500 mg tablet 500 mg PO BID 05/25/24 06/03/25 Unknown History rosuvastatin 20 mg tablet 20 mg PO BEDTIME 05/25/24 06/03/25 Unknown History Exam Height,Weight and Vital Signs: Height 5 ft 4 in Weight 61.235 kg Assessment and Plan Assessment Anesthesia Assessment: Chart Reviewed Documented by User: Axel Ruffin MD 06/07/25 11:16 PMFSH Past Medical History Medical History Medullary sponge kidney Colonic polyp High cholesterol Migraines Kidney disease Adenoma HTN (hypertension) Arrhythmia Functional capacity: independent ambulation Family History Family History Father Throat cancer Diabetes mellitus Mother Myocardial infarct Family history of problems with anesthesia: No Surgical History Surgical History H/O colonoscopy History of Problems with Anesthesia: No Social History Social History Patient Tobacco Use Status: Former Tobacco user Use of substances other than those prescribed or required for medical reasons: No Advance Directives: No Advance Directives Information Provided: Yes Meds Allergies Allergy/AdvReac Type Severity Reaction Status Date / Time lisinopril Allergy Mild Unknown Verified 09/10/24 08:49 Home Medications ?Medication ?Instructions ?Recorded ?Confirmed ?Last Taken ?Type diphenhydramine HCl 25 mg tablet 25 mg PO BEDTIME 05/25/24 07/22/24 Unknown History (Banophen) naproxen 500 mg tablet 500 mg PO BID 05/25/24 06/03/25 Unknown History rosuvastatin 20 mg tablet 20 mg PO BEDTIME 05/25/24 06/03/25 Unknown History Exam Exam Date and Time: 06/07/25 Airway Loose/Missing/Broken Teeth: No Heart: rrr Lungs: cta Other: normal Assessment and Plan Assessment Anesthesia Assessment: Anesthesia Plan Discussed Final Anesthetic Review Family History of Problems with Anesthesia: No History of Problems with Anesthesia: No NPO: Yes ASA Class: II Final Preanesthetic Review: No Changes in Pt Med Stat, Meds/Allgs Chart Reviewed, Consent Obtained/Reviewed and Anes Risks/Benef Reviewed Patient Risk: Low (e) Procedure Risk: Low Anesthetic Plan Anesthetic Plan: MAC: Disposition: Standard PACU
[2025-06-07 09:25] VITALS: BMI 22.4
[2025-06-07] MEDS: Lactated Ringers 1,000 ML 100 ML IVCONT (09:35)
[2025-06-07 09:36] VITALS: BP 138/76; PULSE 67; RESP 14; TEMP 36.6; O2SAT 99
--- NOTE | 2025-06-07 10:00 | MHC.SHP ---
Pre-Procedural Eval Section A - 24 Hr Update-Section A only Date of Service: 06/07/25 The patient is an INPATIENT: No Changes since office visit: No Cold of Flu in the past 2 weeks, No New Medical Problems, No Changes in Medication and No Patient answered all questions The patient has been examined within 24 hours of the surgical procedure. The History & Physical has been completed within 30 days and I have reviewed it.: Yes Section B - Complete if H&P > 30 days Chief Complaint: hx serrated colon polyps,screening Allergies: Allergies Allergy/AdvReac Type Severity Reaction Status Date / Time lisinopril Allergy Mild Unknown Verified 09/10/24 08:49 Plan I have reviewed the history and physical and performed a pertinent physical examination on my patient. No changes have occurred unless specified. Time Spent With Patient Time: Total time managing care of this patient today ____ minutes.
[2025-06-07 11:45] VITALS: BP 119/72; TEMP 36.1
[2025-06-07 12:00] VITALS: BP 110/78; PULSE 64; RESP 16; TEMP 36.8; O2SAT 96
--- NOTE | 2025-06-07 12:07 | PC.NURSE ---
patient left eye redness, patient keeps rubbing eye. educated to not scratch or touch face.
[2025-06-07 12:15] VITALS: BP 120/72; PULSE 53; RESP 16; O2SAT 96
[2025-06-07 12:45] VITALS: BP 121/72; PULSE 53; RESP 16; TEMP 36.8; O2SAT 99
[2025-06-07] MEDS: Erythromycin Base 0.5% Oph Oin 1 GM TUBE 1 CM EYE-LEFT (12:49)
--- NOTE | 2025-06-07 21:18 | OP_ITS ---
DATE OF SERVICE: 06/07/2025 SURGEON: Fredy Lizarraga MD INDICATIONS: Colon cancer screening and prior history of adenomatous colon polyps. PREOPERATIVE DIAGNOSIS: POSTOPERATIVE DIAGNOSIS: PROCEDURE PERFORMED: Colonoscopy to the terminal ileum. ESTIMATED BLOOD LOSS: COMPLICATIONS: ANESTHESIA: Medications; monitored anesthesia care. ASSISTANTS: SPECIMENS: DESCRIPTION OF PROCEDURE: A history and physical performed. The risks and benefits of the procedure were explained to the patient and informed consent was obtained. The patient was placed in the left lateral decubitus position. A digital rectal exam was performed and was found to be normal. The Olympus pediatric video colonoscope was introduced into the rectum and advanced to the cecum. The cecum was identified by transillumination, palpation, and identification of ileocecal valve. Examination was performed and the scope was removed. He tolerated the procedure well and was returned to recovery area in stable condition. FINDINGS: The terminal ileum was normal. Visualized colonic mucosa was normal. Quality of the prep was good. A few diverticula were scattered through the sigmoid. Retroflexed examination showed internal hemorrhoids. IMPRESSION: Normal colonoscopy. RECOMMENDATION: 1. Follow up as needed. 2. Repeat colonoscopy is recommended in 10 years for average-risk individuals. This is optional based on age. MD FRANK Stokes/SPARKLEL / [id number]
== END 2025-06-07 14:00 | disposition home or self-care (01) ==
PROVIDERS: PCP Internal Medicine; Visit Provider Internal Medicine Gastroenterology
PROC: 0DJD8ZZ Inspection of Lower Intestinal Tract, Via Natural or Artificial Opening Endoscopic (ICD-10-PCS; CPT 45378; principal; 2025-06-07 10:50)
DX: Z12.11 Encounter for screening for malignant neoplasm of colon (principal); Z86.0101 Personal history of adenomatous and serrated colon polyps; K57.30 Diverticulosis of large intestine without perforation or abscess without bleeding; K64.8 Other hemorrhoids; I10 Essential (primary) hypertension; E78.5 Hyperlipidemia, unspecified; R00.1 Bradycardia, unspecified; Q61.5 Medullary cystic kidney; R31.29 Other microscopic hematuria; G43.909 Migraine, unspecified, not intractable, without status migrainosus; Z79.1 Long term (current) use of non-steroidal anti-inflammatories (NSAID); Z79.899 Other long term (current) drug therapy; Z87.891 Personal history of nicotine dependence
CPT/HCPCS: G0105; J2003; J2704; J3010